=== PATIENT | male | born 1960 | race African-American/Black ===

== ENCOUNTER 2021-01-22 12:55 | Emergency (ER) | payer OTHER ==
[2021-01-22] MEDS ORDERED: IBUPROFEN 600 MG TABLET (FP) PO ONE ×2 (13:22→13:33)
[2021-01-22 13:33] VITALS: BP 107/60; PULSE 90; TEMP 98.1; BMI 26.4
== END 2021-01-22 15:32 | disposition home or self-care (01) ==
LOC: JER 12:55 → JERFT 12:55
DX: M70.51 Other bursitis of knee, right knee (principal)
CPT/HCPCS: 93971-TC; 99284-25

== ENCOUNTER → 2022-12-07 | Day surgery (SDC) | payer OTHER ==
[2022-12-02 16:29] VITALS: BMI 35.9
[~2022-12-07] MED LIST: SIMETHICONE 40 MG/0.6 ML BOTTLE ONE
== END | disposition home or self-care (01) ==
LOC: JASU-ENDO 05:27
PROVIDERS: ATTEND Student in an Organized Health Care Education/Training Program
DX: Z53.9 Procedure and treatment not carried out, unspecified reason (principal)

== ENCOUNTER 2022-12-21 04:50 | Day surgery (SDC) | payer OTHER ==
[2022-12-20 16:46] VITALS: BMI 26.4
[2022-12-21 12:20] VITALS: TEMP 98
[2022-12-21 12:38] VITALS: PULSE 66
[2022-12-21 12:44] VITALS: BP 115/80; RESP 16
== END 2022-12-21 13:10 | disposition home or self-care (01) ==
LOC: JASU-ENDO 04:50
PROVIDERS: ATTEND Student in an Organized Health Care Education/Training Program
PROC: 0DBK8ZX Excision of Ascending Colon, Via Natural or Artificial Opening Endoscopic, Diagnostic (ICD-10-PCS; 2022-12-21)
PROC: 0DBP8ZX Excision of Rectum, Via Natural or Artificial Opening Endoscopic, Diagnostic (ICD-10-PCS; 2022-12-21)
PROC: 0DBM8ZX Excision of Descending Colon, Via Natural or Artificial Opening Endoscopic, Diagnostic (ICD-10-PCS; principal; 2022-12-21 12:00)
DX: D12.4 Benign neoplasm of descending colon (principal); K62.1 Rectal polyp
CPT/HCPCS: 88305-TC